=== PATIENT | male | born 1985 | race Caucasian/White ===

== ENCOUNTER 2017-08-07 21:38 | Emergency (ER) | payer OTHER ==
[~2017-08-07] VITALS: Ht 180.3 cm; Wt 111.1 kg
[2017-08-07] MEDS ORDERED: KEFLEX500 M1 PO (22:46)
[2017-08-07 23:00] VITALS: BP 148/88
== END 2017-08-07 23:00 | disposition home or self-care (01) ==
LOC: M.ERS 21:38
DX: S51.811A Laceration without foreign body of right forearm, initial encounter (principal); W22.8XXA Striking against or struck by other objects, initial encounter; Y93.89 Activity, other specified; Y92.89 Other specified places as the place of occurrence of the external cause; Y99.8 Other external cause status